=== PATIENT | male | born 1980 | race Caucasian/White ===

== ENCOUNTER 2024-02-06 15:09 | Outpatient (CLI) | payer OTHER, SELFPAY ==
--- NOTE | 2024-02-06 | CA_ITS ---
FINAL REPORT TECHNIQUE: Color Doppler, duplex Doppler and sin scale sonography of the bilateral neck arterial vasculature was performed. Velocities were measured in the carotid arteries. Stenosis evaluation based on the validated velocity criteria. CLINICAL HISTORY: HTN, SMOKER,HEADACHES FINDINGS: The peak systolic velocity of the right common carotid artery is 107 cm/s. The peak systolic velocity of the right internal carotid artery is 126 cm/s and end diastolic velocity 48 cm/s. The ICA/CCA ratio is 1.2. A small amount of plaque is present. The right external carotid artery is patent. The right vertebral artery is patent with antegrade flow. The peak systolic velocity of the left common carotid artery is 108 cm/s. The peak systolic velocity of the left internal carotid artery is 98 cm/s and end diastolic velocity 45 cm/s. The ICA/CCA ratio is 1.1. A small amount of plaque is present. The left external carotid artery is patent.The left vertebral artery is patent with antegrade flow. IMPRESSION: Less than 50% bilateral carotid stenoses. Bilateral patent vertebral arteries with antegrade flow. If indicated, CTA or MRA could further evaluate. Reviewed, Interpreted and Dictated by Alejandro Riley III, MD Transcribed by Lizzy Jimenez Authenticated and [facility]
== END 2024-02-06 23:59 | disposition home or self-care (01) ==
LOC: RT 15:10
PROVIDERS: PCP Internal Medicine Adolescent Medicine; Visit Provider Physician Assistant
DX: I10 Essential (primary) hypertension; Z87.891 Personal history of nicotine dependence; R51.9 Headache, unspecified
CPT/HCPCS: 93880

== ENCOUNTER 2024-02-14 16:47 | Outpatient (CLI) | payer OTHER, SELFPAY ==
--- NOTE | 2024-02-14 16:49 | MR_ITS ---
PROCEDURE INFORMATION: Exam: MR Head Without and With Contrast Exam date and time: 02/14/2024 5:35 PM Age: 43 years old Clinical indication: Visual disturbance; Additional info: Blurry vision TECHNIQUE: Imaging protocol: Magnetic resonance imaging of the head without and with contrast. Contrast material: PROHANCE; Contrast volume: 18 ml; Contrast route: IV; COMPARISON: CR XR ORBIT BILATERAL MIN 4V 02/14/2024 4:58 PM FINDINGS: Brain: No acute infarct. No hemorrhage. Single nonspecific focus of T2/FLAIR hyperintense signal within the right subinsular white matter. No edema. Cerebral ventricles: Normal. No ventriculomegaly. Bones: Unremarkable. Paranasal sinuses: Mucosal thickening and small mucous retention cysts. Mastoid air cells: Small left mastoid effusion. Orbital cavities: Unremarkable. Soft tissues: Unremarkable. IMPRESSION: No acute findings.
--- NOTE | 2024-02-14 16:55 | XR_ITS ---
PROCEDURE INFORMATION: Exam: XR Orbits, MR Screening Exam date and time: 02/14/2024 4:58 PM Age: 43 years old Clinical indication: Screening exam; For mri; Additional info: R/O metal metallic body for mri. Prior history metal in left eye TECHNIQUE: Imaging protocol: XR of the orbits. Exam was performed for MR screening. Views: 1 or 2 views COMPARISON: No relevant prior studies available. FINDINGS: Sinuses: Well aerated. No opacification. Bones/joints: No fracture. Soft tissues: Unremarkable. Radiopaque device or foreign body: None. No evidence of device or foreign body. No visible contraindication for MRI on this exam. IMPRESSION: No visible contraindication to MRI on this exam.
[2024-02-14 17:36] LABS: Blood Urea Nitrogen 12 mg/dl (9-20); Estimated Glomerular Filt Rate 82 ml/min (>60); GFR (African American) 99 ML/MIN (>60)
[2024-02-14] MEDS: SODIUM CHLORIDE 0.9% 10ML SYR (RAD ONLY) 10 ML IV (18:35)
[2024-02-14] MEDS: GADOTERIDOL INJ 20ML SYRINGE 18 ML IV (18:36)
== END 2024-02-14 23:59 | disposition home or self-care (01) ==
LOC: RAD 16:47
PROVIDERS: PCP Physician Assistant; Visit Provider Physician Assistant
DX: H53.8 Other visual disturbances (principal); R51.9 Headache, unspecified; I10 Essential (primary) hypertension; H05.53 Retained (old) foreign body following penetrating wound of bilateral orbits
CPT/HCPCS: 36415; 70200; 70553; 82565; 84520; A9576